=== PATIENT | female | born 1940 | race Caucasian/White ===

== ENCOUNTER 2020-03-22 08:57 | Inpatient (IN) ==
[2020-03-22] MEDS ORDERED: NS 0.9% 1000 ml BAG 1,000 ML IV.FLUID IV ONE (09:21)
[2020-03-22 10:03] LABS: Activated Partial Thrombo Time 46.6 seconds (26.0-38.0); INR 3.13 (0.82-1.09)
[2020-03-22 10:09] LABS: ABS Lymphocytes 0.6 10^3/ul (1.0-4.8); ABS Monocytes 0.4 10^3/ul (0-0.8); ABS Neutrophils 6.4 10^3/ul (1.5-7.7); Eosinophil % 0.2 %; Hematocrit 31 % (35-47); Hemoglobin 10.6 g/dL (12.0-16.0); Lymphocyte % 8.5 %; Mean Corpuscular HGB Conc 34 g/dL (31-36); Mean Corpuscular Hemoglobin 41 pg (27-31); Mean Corpuscular Volume 120 fL (80-97); Mean Platelet Volume 9.2 fL (7.4-10.4); Platelet Count 186 10^3/uL (150-450); Red Blood Count 2.59 10^6 /uL (3.70-4.87); Red Cell Distribution Width 18 % (10-15); White Blood Count 7.6 10^3/uL (3.5-10.8)
[2020-03-22 10:30] LABS: ALT 103 U/L (7-52); Albumin 3.5 g/dL (3.2-5.2); Albumin/Globulin Ratio 0.8 (1-3); Alkaline Phosphatase 150 U/L (34-104); BUN/Creatinine Ratio 6.6 (8-20); Blood Urea Nitrogen 30 mg/dL (6-24); C Reactive Protein 49.63 mg/L (<8.01); CO2 Carbon Dioxide 31 mmol/L (22-32); Calcium 9.2 mg/dL (8.6-10.3); Chloride 92 mmol/L (101-111); EGFR African American 11.2 (>60); EGFR Non-African American 9.2 (>60); Globulin 4.2 g/dL (2-4); Glucose 169 mg/dL (70-100); Sodium 135 mmol/L (135-145); Total Protein 7.7 g/dL (6.4-8.9)
[2020-03-22 10:47] LABS: Anion Gap 12 mmol/L (2-11); Troponin I 0.04 ng/mL (<0.03)
[2020-03-23 04:51] LABS: INR 3.43 (0.82-1.09)
[2020-03-23 04:52] LABS: ABS Basophils 0.1 10^3/ul (0-0.2); ABS Lymphocytes 0.8 10^3/ul (1.0-4.8); ABS Monocytes 0.6 10^3/ul (0-0.8); ABS Neutrophils 5.4 10^3/ul (1.5-7.7); Eosinophil % 0.6 %; Hematocrit 30 % (35-47); Hemoglobin 9.9 g/dL (12.0-16.0); Lymphocyte % 11.5 %; Mean Corpuscular HGB Conc 33 g/dL (31-36); Mean Corpuscular Hemoglobin 40 pg (27-31); Mean Corpuscular Volume 123 fL (80-97); Mean Platelet Volume 9.6 fL (7.4-10.4); Platelet Count 171 10^3/uL (150-450); Red Blood Count 2.45 10^6 /uL (3.70-4.87); Red Cell Distribution Width 18 % (10-15); White Blood Count 6.9 10^3/uL (3.5-10.8)
[2020-03-23 04:55] LABS: CO2 Carbon Dioxide 25 mmol/L (22-32); Calcium 8.2 mg/dL (8.6-10.3); Chloride 96 mmol/L (101-111); Sodium 134 mmol/L (135-145)
[2020-03-23 05:00] LABS: BUN/Creatinine Ratio 7.8 (8-20); Blood Urea Nitrogen 43 mg/dL (6-24); EGFR Non-African American 7.4 (>60); Glucose 102 mg/dL (70-100)
[2020-03-23 05:07] LABS: Anion Gap 13 mmol/L (2-11)
[2020-03-23 05:50] LABS: Potassium Redraw 5.2 mmol/L (3.5-5.0)
[2020-03-23] MEDS ORDERED: Albumin Human 25% 12.5 GM/50 ML BTL IV PRN (08:33)
[2020-03-23 08:42] LABS: Troponin I 0.04 ng/mL (<0.03)
[2020-03-23] MEDS ORDERED: Vancomycin per Pharmacy 1 EA NOTE FOLLOW UP SCH (09:00)
[2020-03-23] MEDS ORDERED: Heparin *DIALYSIS* ONLY 1,000 UNITS/ML VIAL DIALYSIS ONE (09:00)
[2020-03-23] MEDS ORDERED: cefTRIAXone 2 GM ADDV.VIAL 2 GM in NS 0.9% 100 ml BAG 100 ML IV SCH (14:00)
[2020-03-23] MEDS: Heparin 1,000 UNIT/ML 10 ml (10,000 UNITS) CATHLAB/DIALYSIS DIALYSIS ONE ×2 (14:20→15:15)
[2020-03-23] MEDS ORDERED: Vancomycin per Pharmacy 1 EA NOTE FOLLOW UP PRN (14:30)
[2020-03-23] MEDS ORDERED: Vancomycin - DIALYSIS DOSING 1 EA NOTE FOLLOW UP SCH (15:00)
[2020-03-23] MEDS ORDERED: Lidocaine 2% JELLY 6 ML TOPICAL PRN (17:47)
[2020-03-23] MEDS ORDERED: Vancomycin 1,000 MG in NS 0.9% 250 ml 250 ML IVPB ONE (18:00)
[2020-03-23] MEDS ORDERED: NS 0.9% 100 ml BAG 100 ML ONE (18:41)
[2020-03-23] MEDS: cefTRIAXone 2 GM ADDV.VIAL 2 GM in NS 0.9% 100 ml BAG 100 ML IV SCH (20:20)
[2020-03-24] MEDS: NS 0.9% 1000 ml BAG 1,000 ML IV SCH ×2 (05:05→18:01)
[2020-03-24] MEDS ORDERED: Buffered Lidocaine 1% SYRIN 1 ml INTRADERM ONE (06:00)
[2020-03-24 07:32] LABS: Hematocrit 28 % (35-47); Hemoglobin 9.5 g/dL (12.0-16.0); Mean Corpuscular HGB Conc 34 g/dL (31-36); Mean Corpuscular Hemoglobin 41 pg (27-31); Mean Corpuscular Volume 121 fL (80-97); Mean Platelet Volume 9.2 fL (7.4-10.4); Platelet Count 159 10^3/uL (150-450); Red Blood Count 2.31 10^6 /uL (3.70-4.87); Red Cell Distribution Width 18 % (10-15); White Blood Count 4.9 10^3/uL (3.5-10.8)
[2020-03-24 07:44] LABS: INR 1.87 (0.82-1.09)
[2020-03-24 09:33] LABS: BUN/Creatinine Ratio 6.7 (8-20); Calcium 8.8 mg/dL (8.6-10.3); EGFR Non-African American 10.7 (>60); Potassium 4.5 mmol/L (3.5-5.0)
[2020-03-24 09:54] LABS: ABS Basophils 0.1 10^3/ul (0-0.2); ABS Lymphocytes 0.9 10^3/ul (1.0-4.8); ABS Monocytes 0.5 10^3/ul (0-0.8); ABS Neutrophils 3.9 10^3/ul (1.5-7.7); Eosinophil % 0.9 %; Hematocrit 28 % (35-47); Hemoglobin 9.4 g/dL (12.0-16.0); Lymphocyte % 16.3 %; Mean Corpuscular HGB Conc 34 g/dL (31-36); Mean Corpuscular Hemoglobin 41 pg (27-31); Mean Corpuscular Volume 120 fL (80-97); Mean Platelet Volume 9.1 fL (7.4-10.4); Nucleated Red Blood Cells % 0.1; Platelet Count 164 10^3/uL (150-450); Red Cell Distribution Width 18 % (10-15); White Blood Count 5.4 10^3/uL (3.5-10.8)
[2020-03-24] MEDS: Heparin DRIP 25,000 UNITS BAG 25,000 UNITS/500 ML BAG IV SCH (10:03)
[2020-03-24 10:05] LABS: EGFR African American 12.4 (>60); EGFR Non-African American 10.2 (>60)
[2020-03-24] MEDS: Heparin 5000 UNITS/ML 1 mL VIAL IV SCH (10:05)
[2020-03-24 14:54] LABS: Hepatitis B Surface Antigen Nonreactive (Nonreactive)
[2020-03-24 14:59] LABS: Hepatitis B Core IgM Nonreactive (Nonreactive)
[2020-03-24 15:11] LABS: Hepatitis B Surface Ab Not Immune (Immune)
[2020-03-24] MEDS ORDERED: fentaNYL 100 mcg/2 ml 50 MCG/ML VIAL ONE (16:24)
[2020-03-24] MEDS ORDERED: Lidocaine 1% VIAL 10 MG/ML VIAL ONE (16:26)
[2020-03-24] MEDS ORDERED: Midazolam 2 mg/2 ml VIAL 1 mg/ml 2 ml VIAL (2 mg) ONE (16:31)
[2020-03-24] MEDS: cefTRIAXone 2 GM ADDV.VIAL 2 GM in NS 0.9% 100 ml BAG 100 ML IV SCH (18:06)
[2020-03-25] MEDS: Polyethylene Glycol 3350 17 GM PACKET PO SCH ×2 (01:49→08:05)
[2020-03-25 02:56] LABS: ABS Lymphocytes 0.3 10^3/ul (1.0-4.8); ABS Monocytes 0.3 10^3/ul (0-0.8); ABS Neutrophils 1.7 10^3/ul (1.5-7.7); Eosinophil % 1.9 %; Hematocrit 27 % (35-47); Hemoglobin 8.9 g/dL (12.0-16.0); Lymphocyte % 12.6 %; Mean Corpuscular HGB Conc 34 g/dL (31-36); Mean Corpuscular Hemoglobin 41 pg (27-31); Mean Corpuscular Volume 121 fL (80-97); Mean Platelet Volume 9.3 fL (7.4-10.4); Nucleated Red Blood Cells % 0.1; Platelet Count 156 10^3/uL (150-450); Red Blood Count 2.19 10^6 /uL (3.70-4.87); Red Cell Distribution Width 18 % (10-15); White Blood Count 2.4 10^3/uL (3.5-10.8)
[2020-03-25 03:01] LABS: Anion Gap 11 mmol/L (2-11); CO2 Carbon Dioxide 25 mmol/L (22-32); Calcium 8.4 mg/dL (8.6-10.3); Chloride 99 mmol/L (101-111); Potassium 4.8 mmol/L (3.5-5.0); Sodium 135 mmol/L (135-145)
[2020-03-25 03:07] LABS: BUN/Creatinine Ratio 7.8 (8-20); Blood Urea Nitrogen 40 mg/dL (6-24); EGFR African American 9.8 (>60); EGFR Non-African American 8.1 (>60); Glucose 168 mg/dL (70-100); Vancomycin Random 12.5 mcg/mL
[2020-03-25 04:30] LABS: INR 1.47 (0.82-1.09)
[2020-03-25] MEDS ORDERED: Vancomycin Random Level NOTE FOLLOW UP ONE (06:00)
[2020-03-25] MEDS ORDERED: oxyCODONE/Acetamin 5/325 mg TAB PO PRN (12:13)
[2020-03-25] MEDS ORDERED: Vancomycin 500 MG in NS 0.9% 250 ml 250 ML IVPB ONE (16:00)
[2020-03-25] MEDS: Heparin 5000 UNITS/ML 1 mL VIAL IV SCH (17:24)
[2020-03-25 18:34] LABS: Folate > 20.00 ng/mL (>3.99)
[2020-03-25 18:37] LABS: Ferritin 990.5 ng/mL (11-307); Vitamin B12 688 pg/mL (180-914)
[2020-03-25 18:59] LABS: % Iron Saturation 28 % (15-55); Iron 66 ug/dL (50-212); Total Iron Binding Capacity 237 mcg/dL (250-450); Transferrin 169 mg/dL (203-362); Unsaturated Iron Binding < 222 ug/dL
[2020-03-25] MEDS ORDERED: Vancomycin 500 MG in NS 0.9% 250 ML IVPB ONE (20:30)
[2020-03-25] MEDS: cefTRIAXone 2 GM ADDV.VIAL 2 GM in NS 0.9% 100 ml BAG 100 ML IV SCH ×2 (20:38→20:45)
[2020-03-26 06:53] LABS: BUN/Creatinine Ratio 6.2 (8-20); Calcium 8.4 mg/dL (8.6-10.3); EGFR African American 14.9 (>60); EGFR Non-African American 12.4 (>60); INR 1.27 (0.82-1.09); Potassium 4.2 mmol/L (3.5-5.0)
[2020-03-26 06:54] LABS: ABS Eosinophils 0.1 10^3/ul (0-0.6); ABS Lymphocytes 0.6 10^3/ul (1.0-4.8); ABS Monocytes 0.5 10^3/ul (0-0.8); ABS Neutrophils 1.9 10^3/ul (1.5-7.7); Eosinophil % 2.5 %; Hematocrit 27 % (35-47); Hemoglobin 8.9 g/dL (12.0-16.0); Lymphocyte % 20.4 %; Mean Corpuscular HGB Conc 34 g/dL (31-36); Mean Corpuscular Hemoglobin 41 pg (27-31); Mean Corpuscular Volume 121 fL (80-97); Mean Platelet Volume 9.2 fL (7.4-10.4); Platelet Count 171 10^3/uL (150-450); Red Cell Distribution Width 18 % (10-15); White Blood Count 3.1 10^3/uL (3.5-10.8)
[2020-03-26] MEDS: Heparin 5000 UNITS/ML 1 mL VIAL IV SCH ×2 (07:15→20:46)
[2020-03-26] MEDS: Polyethylene Glycol 3350 17 GM PACKET PO SCH (10:12)
[2020-03-26] MEDS: Warfarin DAILY REMINDER **NOTE FOLLOW UP SCH (17:46)
[2020-03-26] MEDS: cefTRIAXone 2 GM ADDV.VIAL 2 GM in NS 0.9% 100 ml BAG 100 ML IV SCH (20:46)
[2020-03-27 03:08] LABS: Activated Partial Thrombo Time 94.8 seconds (26.0-38.0); INR 1.28 (0.82-1.09)
[2020-03-27 03:43] LABS: Hematocrit 26 % (35-47); Hemoglobin 8.6 g/dL (12.0-16.0); Mean Corpuscular HGB Conc 33 g/dL (31-36); Mean Corpuscular Hemoglobin 40 pg (27-31); Mean Corpuscular Volume 120 fL (80-97); Mean Platelet Volume 9.3 fL (7.4-10.4); Platelet Count 177 10^3/uL (150-450); Red Blood Count 2.15 10^6 /uL (3.70-4.87); Red Cell Distribution Width 18 % (10-15)
[2020-03-27 04:03] LABS: Polychromasia 1+
[2020-03-27 04:04] LABS: ABS Eosinophils 0.1 10^3/ul (0-0.6); ABS Lymphocytes 0.7 10^3/ul (1.0-4.8); ABS Monocytes 0.6 10^3/ul (0-0.8); ABS Neutrophils 2.6 10^3/ul (1.5-7.7); Eosinophil % 2.2 %; Lymphocyte % 16.5 %; Nucleated Red Blood Cells % 0.2
[2020-03-27] MEDS: Heparin DRIP 25,000 UNITS BAG 25,000 UNITS/500 ML BAG IV SCH (09:07)
[2020-03-27] MEDS: Polyethylene Glycol 3350 17 GM PACKET PO SCH (09:07)
[2020-03-27] MEDS: Heparin 5000 UNITS/ML 1 mL VIAL IV SCH (16:31)
[2020-03-27] MEDS: Warfarin DAILY REMINDER **NOTE FOLLOW UP SCH (16:34)
[2020-03-27] MEDS: cefTRIAXone 2 GM ADDV.VIAL 2 GM in NS 0.9% 100 ml BAG 100 ML IV SCH (20:02)
[2020-03-28] MEDS ORDERED: Vancomycin Random Level NOTE FOLLOW UP ONE (06:00)
[2020-03-28 07:05] LABS: EGFR African American 7.6 (>60); EGFR Non-African American 6.3 (>60)
[2020-03-28 07:50] LABS: INR 1.37 (0.82-1.09)
[2020-03-28 08:00] LABS: Hematocrit 26 % (35-47); Hemoglobin 8.7 g/dL (12.0-16.0); Mean Corpuscular HGB Conc 34 g/dL (31-36); Mean Corpuscular Hemoglobin 41 pg (27-31); Mean Platelet Volume 9.1 fL (7.4-10.4); Platelet Count 195 10^3/uL (150-450); Red Blood Count 2.14 10^6 /uL (3.70-4.87); Red Cell Distribution Width 18 % (10-15); White Blood Count 5.5 10^3/uL (3.5-10.8)
[2020-03-28 08:36] LABS: Vancomycin Random 12.9 mcg/mL
[2020-03-28 08:43] LABS: Mean Corpuscular Volume 120 fL (80-97)
[2020-03-28 08:50] LABS: ABS Eosinophils 0.1 10^3/ul (0-0.6); ABS Lymphocytes 0.7 10^3/ul (1.0-4.8); ABS Monocytes 0.6 10^3/ul (0-0.8); ABS Neutrophils 4.2 10^3/ul (1.5-7.7); Eosinophil % 1.3 %; Lymphocyte % 12.1 %; Nucleated Red Blood Cells % 0.1
[2020-03-28] MEDS: Polyethylene Glycol 3350 17 GM PACKET PO SCH (08:56)
[2020-03-28] MEDS: Lidocaine 2% JELLY 6 ML TOPICAL PRN (14:33)
[2020-03-28] MEDS ORDERED: Vancomycin 500 MG in NS 0.9% 250 ML IVPB ONE (18:00)
[2020-03-28] MEDS: Warfarin DAILY REMINDER **NOTE FOLLOW UP SCH (19:28)
[2020-03-29 07:24] LABS: ABS Eosinophils 0.1 10^3/ul (0-0.6); ABS Lymphocytes 0.9 10^3/ul (1.0-4.8); ABS Monocytes 0.5 10^3/ul (0-0.8); ABS Neutrophils 4.1 10^3/ul (1.5-7.7); Eosinophil % 1.6 %; Hematocrit 27 % (35-47); Hemoglobin 9.1 g/dL (12.0-16.0); Lymphocyte % 16.3 %; Mean Corpuscular HGB Conc 34 g/dL (31-36); Mean Corpuscular Hemoglobin 40 pg (27-31); Mean Corpuscular Volume 120 fL (80-97); Mean Platelet Volume 8.8 fL (7.4-10.4); Nucleated Red Blood Cells % 0.1; Platelet Count 223 10^3/uL (150-450); Red Blood Count 2.24 10^6 /uL (3.70-4.87); Red Cell Distribution Width 18 % (10-15); White Blood Count 5.6 10^3/uL (3.5-10.8)
[2020-03-29 07:32] LABS: INR 1.45 (0.82-1.09)
[2020-03-29 07:33] LABS: BUN/Creatinine Ratio 5.3 (8-20); Calcium 8.9 mg/dL (8.6-10.3); EGFR African American 14.1 (>60); EGFR Non-African American 11.6 (>60); Potassium 4.7 mmol/L (3.5-5.0)
[2020-03-29] MEDS: Polyethylene Glycol 3350 17 GM PACKET PO SCH (08:51)
[2020-03-29 11:12] LABS: C Reactive Protein 114.11 mg/L (<8.01)
[2020-03-29] MEDS: Warfarin DAILY REMINDER **NOTE FOLLOW UP SCH (16:50)
[2020-03-29] MEDS: Heparin DRIP 25,000 UNITS BAG 25,000 UNITS/500 ML BAG IV SCH (22:56)
[2020-03-30] MEDS ORDERED: Vancomycin Random Level NOTE FOLLOW UP ONE (06:00)
[2020-03-30 07:55] LABS: ABS Basophils 0.1 10^3/ul (0-0.2); ABS Lymphocytes 0.8 10^3/ul (1.0-4.8); ABS Monocytes 0.4 10^3/ul (0-0.8); ABS Neutrophils 3.9 10^3/ul (1.5-7.7); Eosinophil % 0.9 %; Hematocrit 26 % (35-47); Mean Corpuscular HGB Conc 34 g/dL (31-36); Mean Corpuscular Hemoglobin 41 pg (27-31); Mean Corpuscular Volume 120 fL (80-97); Mean Platelet Volume 8.5 fL (7.4-10.4); Nucleated Red Blood Cells % 0.1; Platelet Count 251 10^3/uL (150-450); Red Blood Count 2.18 10^6 /uL (3.70-4.87); Red Cell Distribution Width 18 % (10-15); White Blood Count 5.2 10^3/uL (3.5-10.8)
[2020-03-30 07:56] LABS: Activated Partial Thrombo Time 55.9 seconds (26.0-38.0); INR 1.42 (0.82-1.09)
[2020-03-30 08:13] LABS: Anion Gap 12 mmol/L (2-11); BUN/Creatinine Ratio 5.8 (8-20); Blood Urea Nitrogen 31 mg/dL (6-24); CO2 Carbon Dioxide 24 mmol/L (22-32); Calcium 8.6 mg/dL (8.6-10.3); Chloride 96 mmol/L (101-111); EGFR African American 9.4 (>60); EGFR Non-African American 7.8 (>60); Glucose 141 mg/dL (70-100); Sodium 132 mmol/L (135-145)
[2020-03-30] MEDS: Polyethylene Glycol 3350 17 GM PACKET PO SCH (08:15)
[2020-03-30 09:11] LABS: % Iron Saturation 21 % (15-55); Iron 63 ug/dL (50-212); Total Iron Binding Capacity 297 mcg/dL (250-450); Transferrin 212 mg/dL (203-362); Unsaturated Iron Binding < 282 ug/dL; Vancomycin Random 15.4 mcg/mL
[2020-03-30 09:45] LABS: Ferritin 763.5 ng/mL (11-307)
[2020-03-30] MEDS: Lidocaine 2% JELLY 6 ML TOPICAL PRN (12:30)
[2020-03-30] MEDS: Warfarin DAILY REMINDER **NOTE FOLLOW UP SCH (16:49)
[2020-03-30] MEDS ORDERED: Vancomycin 500 MG in NS 0.9% 250 ML IVPB ONE (20:00)
[2020-03-31 07:00] LABS: INR 1.31 (0.82-1.09)
[2020-03-31] MEDS: Polyethylene Glycol 3350 17 GM PACKET PO SCH (08:02)
[2020-03-31] MEDS: Heparin DRIP 25,000 UNITS BAG 25,000 UNITS/500 ML BAG IV SCH (11:10)
[2020-03-31] MEDS: Warfarin DAILY REMINDER **NOTE FOLLOW UP SCH (17:23)
[2020-04-01 04:51] LABS: ABS Basophils 0.1 10^3/ul (0-0.2); ABS Eosinophils 0.1 10^3/ul (0-0.6); ABS Lymphocytes 0.8 10^3/ul (1.0-4.8); ABS Monocytes 0.5 10^3/ul (0-0.8); ABS Neutrophils 3.6 10^3/ul (1.5-7.7); Eosinophil % 2.1 %; Hematocrit 26 % (35-47); Lymphocyte % 15.3 %; Mean Corpuscular HGB Conc 35 g/dL (31-36); Mean Corpuscular Hemoglobin 42 pg (27-31); Mean Corpuscular Volume 120 fL (80-97); Mean Platelet Volume 8.3 fL (7.4-10.4); Platelet Count 252 10^3/uL (150-450); Red Blood Count 2.15 10^6 /uL (3.70-4.87); Red Cell Distribution Width 18 % (10-15)
[2020-04-01 04:54] LABS: INR 1.36 (0.82-1.09)
[2020-04-01 05:07] LABS: Calcium 8.3 mg/dL (8.6-10.3); EGFR African American 9.3 (>60); EGFR Non-African American 7.7 (>60); Potassium 4.6 mmol/L (3.5-5.0)
[2020-04-01 05:35] LABS: Vancomycin Random 17.3 mcg/mL
[2020-04-01] MEDS ORDERED: Vancomycin Random Level NOTE FOLLOW UP ONE (06:00)
[2020-04-01] MEDS: Lidocaine 2% JELLY 6 ML TOPICAL PRN (08:15)
[2020-04-01] MEDS: Polyethylene Glycol 3350 17 GM PACKET PO SCH (08:37)
[2020-04-01] MEDS: Warfarin DAILY REMINDER **NOTE FOLLOW UP SCH (16:12)
[2020-04-01] MEDS ORDERED: Vancomycin 500 MG in NS 0.9% 250 ML IVPB ONE (18:00)
[2020-04-02 05:00] LABS: Activated Partial Thrombo Time 30.2 seconds (26.0-38.0); INR 1.29 (0.82-1.09)
[2020-04-02] MEDS: Heparin DRIP 25,000 UNITS BAG 25,000 UNITS/500 ML BAG IV SCH (07:28)
[2020-04-02] MEDS: Heparin 5000 UNITS/ML 1 mL VIAL IV SCH (07:29)
[2020-04-02] MEDS: Polyethylene Glycol 3350 17 GM PACKET PO SCH (08:53)
[2020-04-02] MEDS: Warfarin DAILY REMINDER **NOTE FOLLOW UP SCH (16:41)
[2020-04-03] MEDS: Polyethylene Glycol 3350 17 GM PACKET PO SCH (09:05)
[2020-04-03 09:31] LABS: ABS Basophils 0.1 10^3/ul (0-0.2); ABS Eosinophils 0.1 10^3/ul (0-0.6); ABS Lymphocytes 0.7 10^3/ul (1.0-4.8); ABS Monocytes 0.5 10^3/ul (0-0.8); ABS Neutrophils 4.6 10^3/ul (1.5-7.7); Eosinophil % 1.4 %; Hematocrit 27 % (35-47); Hemoglobin 9.3 g/dL (12.0-16.0); Lymphocyte % 11.8 %; Mean Corpuscular HGB Conc 34 g/dL (31-36); Mean Corpuscular Hemoglobin 41 pg (27-31); Mean Corpuscular Volume 120 fL (80-97); Mean Platelet Volume 8.3 fL (7.4-10.4); Platelet Count 280 10^3/uL (150-450); Red Blood Count 2.27 10^6 /uL (3.70-4.87); Red Cell Distribution Width 18 % (10-15); White Blood Count 5.9 10^3/uL (3.5-10.8)
[2020-04-03 09:33] LABS: BUN/Creatinine Ratio 5.9 (8-20); Calcium 8.9 mg/dL (8.6-10.3); EGFR African American 8.9 (>60); EGFR Non-African American 7.3 (>60)
[2020-04-03 09:34] LABS: Activated Partial Thrombo Time 64.9 seconds (26.0-38.0); INR 1.39 (0.82-1.09)
[2020-04-03 09:35] LABS: Potassium 5.1 mmol/L (3.5-5.0)
[2020-04-03] MEDS ORDERED: Sodium Polystyrene ORAL.SUSP 15 GM/60 ML BTL PO ONE (13:12)
[2020-04-03] MEDS: Heparin DRIP 25,000 UNITS BAG 25,000 UNITS/500 ML BAG IV SCH (15:38)
[2020-04-03] MEDS: Warfarin DAILY REMINDER **NOTE FOLLOW UP SCH (15:45)
[2020-04-04] MEDS ORDERED: Vancomycin Random Level NOTE FOLLOW UP ONE (06:00)
[2020-04-04 07:36] LABS: Activated Partial Thrombo Time 71.3 seconds (26.0-38.0); INR 1.49 (0.82-1.09)
[2020-04-04] MEDS: Polyethylene Glycol 3350 17 GM PACKET PO SCH (08:08)
[2020-04-04] MEDS ORDERED: Pentafluoroprop/Tetrafluoro(NF) 1 SPRAY TOP.SPRAY TOPICAL PRN (13:51)
[2020-04-04] MEDS ORDERED: Vancomycin 500 MG in NS 0.9% 250 ML IVPB ONE (15:30)
[2020-04-04] MEDS: Warfarin DAILY REMINDER **NOTE FOLLOW UP SCH (18:03)
[2020-04-05] MEDS: Heparin DRIP 25,000 UNITS BAG 25,000 UNITS/500 ML BAG IV SCH (05:31)
[2020-04-05] MEDS: Polyethylene Glycol 3350 17 GM PACKET PO SCH (08:15)
[2020-04-05 08:27] LABS: Activated Partial Thrombo Time 76.1 seconds (26.0-38.0); INR 1.74 (0.82-1.09)
[2020-04-05] MEDS: Warfarin DAILY REMINDER **NOTE FOLLOW UP SCH (17:14)
[2020-04-06] MEDS ORDERED: Vancomycin Random Level NOTE FOLLOW UP ONE (06:00)
[2020-04-06 06:21] LABS: INR 1.93 (0.82-1.09)
[2020-04-06] MEDS: Polyethylene Glycol 3350 17 GM PACKET PO SCH (08:18)
[2020-04-06 09:29] LABS: BUN/Creatinine Ratio 5.4 (8-20); Calcium 8.6 mg/dL (8.6-10.3); EGFR African American 7.8 (>60); EGFR Non-African American 6.4 (>60)
[2020-04-06] MEDS ORDERED: Vancomycin 500 MG in NS 0.9% 250 ML IVPB ONE (18:30)
[2020-04-06] MEDS: Warfarin DAILY REMINDER **NOTE FOLLOW UP SCH (19:02)
[2020-04-06] MEDS: Heparin DRIP 25,000 UNITS BAG 25,000 UNITS/500 ML BAG IV SCH (20:46)
[2020-04-07 06:43] LABS: INR 1.99 (0.82-1.09)
[2020-04-07] MEDS: Polyethylene Glycol 3350 17 GM PACKET PO SCH (08:05)
[2020-04-07 10:06] LABS: ABS Basophils 0.1 10^3/ul (0-0.2); ABS Eosinophils 0.1 10^3/ul (0-0.6); ABS Lymphocytes 0.7 10^3/ul (1.0-4.8); ABS Monocytes 0.6 10^3/ul (0-0.8); ABS Neutrophils 4.1 10^3/ul (1.5-7.7); Eosinophil % 1.4 %; Hematocrit 28 % (35-47); Hemoglobin 9.3 g/dL (12.0-16.0); Lymphocyte % 13.3 %; Mean Corpuscular HGB Conc 33 g/dL (31-36); Mean Corpuscular Hemoglobin 40 pg (27-31); Mean Corpuscular Volume 119 fL (80-97); Mean Platelet Volume 9.3 fL (7.4-10.4); Nucleated Red Blood Cells % 0.1; Platelet Count 257 10^3/uL (150-450); Red Blood Count 2.33 10^6 /uL (3.70-4.87); Red Cell Distribution Width 18 % (10-15); White Blood Count 5.6 10^3/uL (3.5-10.8)
[2020-04-07] MEDS: Warfarin DAILY REMINDER **NOTE FOLLOW UP SCH (16:54)
[2020-04-07] MEDS: Heparin 5000 UNITS/ML 1 mL VIAL IV SCH (22:57)
[2020-04-08 05:47] LABS: INR 2.06 (0.82-1.09)
[2020-04-08] MEDS: Polyethylene Glycol 3350 17 GM PACKET PO SCH (08:11)
[2020-04-08] MEDS ORDERED: NS 0.9% 250 ml 250 ML IVPB PRN (09:21)
[2020-04-08] MEDS ORDERED: Vancomycin 500 MG in NS 0.9% 250 ML IVPB ONE (18:00)
[2020-04-08] MEDS: Warfarin DAILY REMINDER **NOTE FOLLOW UP SCH (18:17)
[2020-04-09] MEDS: Heparin DRIP 25,000 UNITS BAG 25,000 UNITS/500 ML BAG IV SCH (01:15)
[2020-04-09 06:14] LABS: INR 2.06 (0.82-1.09)
[2020-04-09] MEDS: Polyethylene Glycol 3350 17 GM PACKET PO SCH (08:01)
[2020-04-09] MEDS: Warfarin DAILY REMINDER **NOTE FOLLOW UP SCH (16:27)
[2020-04-09] MEDS ORDERED: Warfarin per PHARMACY **NOTE FOLLOW UP SCH (17:00)
[2020-04-10 05:28] LABS: Activated Partial Thrombo Time 49.9 seconds (26.0-38.0); INR 2.23 (0.82-1.09)
[2020-04-10] MEDS: Heparin 5000 UNITS/ML 1 mL VIAL IV SCH ×2 (05:38→07:41)
[2020-04-10] MEDS: Polyethylene Glycol 3350 17 GM PACKET PO SCH (10:04)
[2020-04-10] MEDS: Warfarin DAILY REMINDER **NOTE FOLLOW UP SCH (17:24)
[2020-04-11] MEDS: Heparin DRIP 25,000 UNITS BAG 25,000 UNITS/500 ML BAG IV SCH (05:01)
[2020-04-11] MEDS ORDERED: Vancomycin Random Level NOTE FOLLOW UP ONE (06:00)
[2020-04-11 07:18] LABS: Activated Partial Thrombo Time 78.5 seconds (26.0-38.0); INR 2.52 (0.82-1.09)
[2020-04-11 08:24] LABS: Vancomycin Random 29.2 mcg/mL
[2020-04-11] MEDS: Polyethylene Glycol 3350 17 GM PACKET PO SCH (08:51)
[2020-04-11 14:15] VITALS: BP 118/47
[2020-04-11] MEDS ORDERED: Vancomycin 500 MG in NS 0.9% 250 ML IVPB ONE (16:00)
[2020-04-11] MEDS: Warfarin DAILY REMINDER **NOTE FOLLOW UP SCH (18:33)
[2020-04-13] MEDS ORDERED: Vancomycin Random Level NOTE FOLLOW UP ONE (06:00)
== END 2020-04-11 20:31 | disposition home health service (06) | DRG 617 ==
LOC: ED 08:57 → ICU 09:21 → MEDTELE 03-23 20:00
PROVIDERS: ADMIT Internal Medicine Critical Care Medicine; ATTEND Internal Medicine